=== PATIENT | male | born 1945 | race Caucasian/White ===

== ENCOUNTER 2016-09-27 11:30 | Outpatient (CLI) | payer MEDICARE, OTHER | END 2016-09-27 23:59 | disposition home or self-care (01) | LOC: WOU 11:30 | PROVIDERS: ATTEND Specialist | DX: L59.8 Other specified disorders of the skin and subcutaneous tissue related to radiation (principal); I96 Gangrene, not elsewhere classified; T81.89XA Other complications of procedures, not elsewhere classified, initial encounter; T81.31XA Disruption of external operation (surgical) wound, not elsewhere classified, initial encounter; Z85.828 Personal history of other malignant neoplasm of skin; I25.10 Atherosclerotic heart disease of native coronary artery without angina pectoris | CPT/HCPCS: 11042; 87070-TC; 87075-TC; A6197; A6402 ==

== ENCOUNTER 2016-10-04 09:20 | Outpatient (CLI) | payer MEDICARE, OTHER | END 2016-10-04 23:59 | disposition home or self-care (01) | LOC: WOU 09:20 | PROVIDERS: ATTEND Specialist | DX: L59.8 Other specified disorders of the skin and subcutaneous tissue related to radiation (principal); Z85.828 Personal history of other malignant neoplasm of skin; Z85.89 Personal history of malignant neoplasm of other organs and systems; I25.10 Atherosclerotic heart disease of native coronary artery without angina pectoris | CPT/HCPCS: 15115; A6402 ==

== ENCOUNTER 2016-10-11 11:10 | Outpatient (CLI) | payer MEDICARE, OTHER | END 2016-10-11 23:59 | disposition home or self-care (01) | LOC: WOU 11:10 | PROVIDERS: ATTEND Specialist | DX: L59.8 Other specified disorders of the skin and subcutaneous tissue related to radiation (principal); T86.821 Skin graft (allograft) (autograft) failure; Z85.828 Personal history of other malignant neoplasm of skin; I25.10 Atherosclerotic heart disease of native coronary artery without angina pectoris | CPT/HCPCS: A6402; G0463 ==

== ENCOUNTER 2016-10-18 10:04 | Outpatient (CLI) | payer MEDICARE, OTHER | END 2016-10-18 23:59 | disposition home or self-care (01) | LOC: WOU 10:04 | PROVIDERS: ATTEND Specialist | DX: T81.31XA Disruption of external operation (surgical) wound, not elsewhere classified, initial encounter (principal); T86.828 Other complications of skin graft (allograft) (autograft); L59.8 Other specified disorders of the skin and subcutaneous tissue related to radiation; I25.10 Atherosclerotic heart disease of native coronary artery without angina pectoris; E89.0 Postprocedural hypothyroidism; Z87.891 Personal history of nicotine dependence; Z85.828 Personal history of other malignant neoplasm of skin | CPT/HCPCS: A6253; A6402 ==

== ENCOUNTER 2016-10-25 09:57 | Outpatient (CLI) | payer MEDICARE, OTHER | END 2016-10-25 23:59 | disposition home or self-care (01) | LOC: WOU 09:57 | PROVIDERS: ATTEND Specialist | DX: L59.8 Other specified disorders of the skin and subcutaneous tissue related to radiation (principal); T81.31XA Disruption of external operation (surgical) wound, not elsewhere classified, initial encounter; I25.10 Atherosclerotic heart disease of native coronary artery without angina pectoris; E89.0 Postprocedural hypothyroidism; Z87.891 Personal history of nicotine dependence; Z85.828 Personal history of other malignant neoplasm of skin; T86.828 Other complications of skin graft (allograft) (autograft) | CPT/HCPCS: A6253; A6402 ==

== ENCOUNTER 2016-11-01 09:09 | Outpatient (CLI) | payer MEDICARE, OTHER | END 2016-11-01 23:59 | disposition home or self-care (01) | LOC: WOU 09:09 | PROVIDERS: ATTEND Specialist | DX: T81.31XD Disruption of external operation (surgical) wound, not elsewhere classified, subsequent encounter (principal); T86.828 Other complications of skin graft (allograft) (autograft); L59.8 Other specified disorders of the skin and subcutaneous tissue related to radiation; Z85.828 Personal history of other malignant neoplasm of skin; Z87.891 Personal history of nicotine dependence | CPT/HCPCS: 87070; 87077; 97597; A6402; A6253 ==

== ENCOUNTER 2016-11-08 09:47 | Outpatient (CLI) | payer MEDICARE, OTHER | END 2016-11-08 23:59 | disposition home or self-care (01) | LOC: WOU 09:47 | PROVIDERS: ATTEND Specialist | DX: L59.8 Other specified disorders of the skin and subcutaneous tissue related to radiation (principal); T81.31XD Disruption of external operation (surgical) wound, not elsewhere classified, subsequent encounter; T81.89XD Other complications of procedures, not elsewhere classified, subsequent encounter; Z87.891 Personal history of nicotine dependence; Z85.828 Personal history of other malignant neoplasm of skin; I25.10 Atherosclerotic heart disease of native coronary artery without angina pectoris; T86.828 Other complications of skin graft (allograft) (autograft) | CPT/HCPCS: A6402; G0463 ==

== ENCOUNTER 2016-11-15 09:44 | Outpatient (CLI) | payer MEDICARE, OTHER | END 2016-11-15 23:59 | disposition home or self-care (01) | DX: L59.8 Other specified disorders of the skin and subcutaneous tissue related to radiation (principal); T81.31XD Disruption of external operation (surgical) wound, not elsewhere classified, subsequent encounter; T86.828 Other complications of skin graft (allograft) (autograft); T81.89XD Other complications of procedures, not elsewhere classified, subsequent encounter; Z85.828 Personal history of other malignant neoplasm of skin; E89.0 Postprocedural hypothyroidism | CPT/HCPCS: A6402; G0463 ==

== ENCOUNTER 2016-11-22 09:05 | Outpatient (CLI) | payer MEDICARE, OTHER | END 2016-11-22 23:59 | disposition home or self-care (01) | LOC: WOU 09:05 | PROVIDERS: ATTEND Specialist | DX: L59.8 Other specified disorders of the skin and subcutaneous tissue related to radiation (principal); T81.31XD Disruption of external operation (surgical) wound, not elsewhere classified, subsequent encounter; T81.89XD Other complications of procedures, not elsewhere classified, subsequent encounter; T86.828 Other complications of skin graft (allograft) (autograft); Z87.891 Personal history of nicotine dependence; Z85.828 Personal history of other malignant neoplasm of skin; I25.10 Atherosclerotic heart disease of native coronary artery without angina pectoris | CPT/HCPCS: A6402; G0463 ==

== ENCOUNTER 2016-12-06 09:45 | Outpatient (CLI) | payer MEDICARE, OTHER | END 2016-12-06 23:59 | disposition home or self-care (01) | LOC: WOU 09:45 | PROVIDERS: ATTEND Specialist | DX: T86.828 Other complications of skin graft (allograft) (autograft) (principal); L59.8 Other specified disorders of the skin and subcutaneous tissue related to radiation; Z85.828 Personal history of other malignant neoplasm of skin; T81.89XD Other complications of procedures, not elsewhere classified, subsequent encounter; Z87.891 Personal history of nicotine dependence | CPT/HCPCS: A6402; G0463 ==

== ENCOUNTER 2017-01-03 09:35 | Outpatient (CLI) | payer MEDICARE, OTHER | END 2017-01-03 23:59 | disposition home or self-care (01) | LOC: WOU 09:35 | PROVIDERS: ATTEND Specialist | DX: T81.31XD Disruption of external operation (surgical) wound, not elsewhere classified, subsequent encounter (principal); T86.828 Other complications of skin graft (allograft) (autograft); L59.8 Other specified disorders of the skin and subcutaneous tissue related to radiation; Z87.891 Personal history of nicotine dependence; Z85.828 Personal history of other malignant neoplasm of skin; I25.10 Atherosclerotic heart disease of native coronary artery without angina pectoris; Z79.899 Other long term (current) drug therapy | CPT/HCPCS: A6402; G0463 ==

== ENCOUNTER 2017-01-31 10:23 | Outpatient (CLI) | payer MEDICARE, OTHER | END 2017-01-31 23:59 | disposition home or self-care (01) | LOC: WOU 10:23 | PROVIDERS: ATTEND Specialist | DX: L59.8 Other specified disorders of the skin and subcutaneous tissue related to radiation (principal); T86.828 Other complications of skin graft (allograft) (autograft); Z87.891 Personal history of nicotine dependence; Z85.828 Personal history of other malignant neoplasm of skin; I25.10 Atherosclerotic heart disease of native coronary artery without angina pectoris; Z79.899 Other long term (current) drug therapy; Z85.89 Personal history of malignant neoplasm of other organs and systems; E89.0 Postprocedural hypothyroidism; T81.31XD Disruption of external operation (surgical) wound, not elsewhere classified, subsequent encounter | CPT/HCPCS: 15275; A6402; Q4131 ==

== ENCOUNTER 2017-02-07 09:55 | Outpatient (CLI) | payer MEDICARE, OTHER | END 2017-02-07 23:59 | disposition home or self-care (01) | LOC: WOU 09:55 | PROVIDERS: ATTEND Specialist | DX: L59.8 Other specified disorders of the skin and subcutaneous tissue related to radiation (principal); T81.31XA Disruption of external operation (surgical) wound, not elsewhere classified, initial encounter; T86.828 Other complications of skin graft (allograft) (autograft); Z85.828 Personal history of other malignant neoplasm of skin | CPT/HCPCS: 15275; A6402; Q4131 ×2 ==

== ENCOUNTER 2017-02-14 09:48 | Outpatient (CLI) | payer MEDICARE, OTHER | END 2017-02-14 23:59 | disposition home or self-care (01) | LOC: WOU 09:48 | PROVIDERS: ATTEND Specialist | DX: L59.8 Other specified disorders of the skin and subcutaneous tissue related to radiation (principal); T81.31XA Disruption of external operation (surgical) wound, not elsewhere classified, initial encounter; T86.828 Other complications of skin graft (allograft) (autograft); Z85.828 Personal history of other malignant neoplasm of skin; Z87.891 Personal history of nicotine dependence; Z85.89 Personal history of malignant neoplasm of other organs and systems | CPT/HCPCS: 15275; A6402 ==

== ENCOUNTER 2017-02-21 10:08 | Outpatient (CLI) | payer MEDICARE, OTHER | END 2017-02-21 23:59 | disposition home or self-care (01) | LOC: WOU 10:08 | PROVIDERS: ATTEND Specialist | DX: L59.8 Other specified disorders of the skin and subcutaneous tissue related to radiation (principal); T86.828 Other complications of skin graft (allograft) (autograft); Z85.828 Personal history of other malignant neoplasm of skin; E89.0 Postprocedural hypothyroidism | CPT/HCPCS: A6402; G0463 ==

== ENCOUNTER 2017-02-28 10:00 | Outpatient (CLI) | payer MEDICARE, OTHER | END 2017-02-28 23:59 | disposition home or self-care (01) | LOC: WOU 10:00 | PROVIDERS: ATTEND Specialist | DX: L59.8 Other specified disorders of the skin and subcutaneous tissue related to radiation (principal); T86.828 Other complications of skin graft (allograft) (autograft); T81.31XA Disruption of external operation (surgical) wound, not elsewhere classified, initial encounter; Z87.891 Personal history of nicotine dependence; Z85.828 Personal history of other malignant neoplasm of skin | CPT/HCPCS: G0463 ==

== ENCOUNTER 2017-03-28 09:55 | Outpatient (CLI) | payer MEDICARE, OTHER | END 2017-03-28 23:59 | disposition home or self-care (01) | LOC: WOU 09:55 | PROVIDERS: ATTEND Specialist | DX: L59.8 Other specified disorders of the skin and subcutaneous tissue related to radiation (principal); T86.828 Other complications of skin graft (allograft) (autograft); Z87.891 Personal history of nicotine dependence; Z85.828 Personal history of other malignant neoplasm of skin; Z85.89 Personal history of malignant neoplasm of other organs and systems; E89.0 Postprocedural hypothyroidism | CPT/HCPCS: 87070; 87075; 87102; 97597; A6402 ==